=== PATIENT | male | born 1950 | race Caucasian/White ===

== ENCOUNTER 2016-07-03 08:56 | Inpatient (IN) | payer MEDICARE, OTHER ==
[~2016-07-03] VITALS: Ht 182.9 cm; Wt 104.3 kg
[2016-07-22] MEDS ORDERED: ceFAZolin 2 GM PREMIX 50 ML IV SCH (07:30)
[2016-07-22] MEDS ORDERED: METOPROLOL TARTRATE 25 MG TAB PO PRN (07:30)
[2016-07-22] MEDS ORDERED: VANCOMYCIN 1000 MG/NS 250 ML (for <70 kg) IV SCH ×2 (07:30)
[2016-07-22] MEDS ORDERED: TRANEXAMIC ACID IV SCH ×2 (07:30→13:00)
[2016-07-22] MEDS ORDERED: ROPIVACAINE PERI-ARTICULAR INJECTION. PERIART SCH ×5 (07:30)
[2016-07-22] MEDS ORDERED: INSULIN HUMAN REGULAR 1,000 UNITS/10 ML VIAL SQ PRN (07:30)
[2016-07-22] MEDS ORDERED: SODIUM CHLORIDE 0.9% IV SCH ×2 (07:30→13:00)
[2016-07-22] MEDS ORDERED: LACTATED RINGER'S 1000 ML IV SCH (07:30)
[2016-07-22] MEDS: POVIDONE IODINE 7.5% SCRUB 118 ML BOTTLE TOP SCH (07:30)
[2016-07-22] MEDS ORDERED: SODIUM CHLORID 0.9% 500 ML IV SCH (07:30)
[2016-07-22] MEDS ORDERED: DEXAMETHASONE SOD PHOS 20 MG/5 ML VIAL IV SCH (07:45)
[2016-07-22 07:49] VITALS: BP 154/95; PULSE 78; RESP 16; TEMP 97; O2SAT 99
--- NOTE | 2016-07-22 08:58 | HHI.DCPOC ---
Discharge Care Plan Diagnosis: (1) Primary localized osteoarthrosis, lower leg Your Health Problems Are: Difficulty with ADL Goals to Promote Your Health * To prevent worsening of your condition and complications * To maintain your health at the optimal level Directions to Meet Your Goals Take your medications as prescribed Follow your dietary instruction Follow activity as directed Keep your appointments as scheduled Take your immunizations and boosters as scheduled If your symptoms worsen call your PCP, if no PCP go to Urgent Care Center or Emergency Room Smoking is Dangerous to Your Health. Avoid second hand smoke Call the 24-hour hour crisis hotline for domestic abuse at Artem Manuel Jul 22, 2016 08:58
--- NOTE | 2016-07-22 08:59 | HHI.FF ---
Face to Face Verification Diagnosis: (1) Primary localized osteoarthrosis, lower leg Physical Therapy Gait training, Transfer training, bed to chair Knee: Total knee Right LE Weight Bearing: WB as tolerated Right LE Range of Motion: Active ROM Nursing Nursing: Raffy teaching, Dressing changes Dressing Changes: Daily dressing change I have seen patient Orlin Lester on 07/22/16. My clinical findings support the need for the requested home health care services because: Limited ability to care for self High risk of falls I certify that my clinical findings support that this patient is homebound because: Post-op weakness Unsteady gait/balance Artem Manuel Jul 22, 2016 08:59
[2016-07-22] MEDS ORDERED: CPMMACHINE (09:01)
[2016-07-22] MEDS ORDERED: COMMODE 3-IN-11 MIS (09:01)
[2016-07-22] MEDS ORDERED: WALKER WHEELS/F1 MIS (09:01)
[2016-07-22] MEDS ORDERED: GENTAMICIN SULFATE 80 MG/2 ML VIAL ONE (09:08)
[2016-07-22] MEDS ORDERED: MIDAZOLAM HCL 5 MG/5 ML VIAL ONE (09:23)
[2016-07-22] MEDS ORDERED: DEXAMETHASONE SOD PHOS 4 MG/ML VIAL ONE (09:23)
[2016-07-22] MEDS ORDERED: ACETAMINOPHEN 1000 MG/100 ML VIAL IV ONE (09:23)
[2016-07-22] MEDS ORDERED: fentaNYL CITRATE 250 MCG/5 ML AMP ONE (09:23)
[2016-07-22] MEDS ORDERED: FAMOTIDINE 20 MG/2 ML VIAL ONE (09:23)
--- NOTE | 2016-07-22 11:57 | PD.OP ---
cc: Hilton Torres MD Operative Report Date of Surgery: Jul 22, 2016 Preoperative Diagnosis: Right knee severe osteoarthritis Postoperative Diagnosis: Same Procedure: Right total knee arthroplasty Anesthesia: Gen. and adductor canal block Surgeon: Hilton Torres [employer]rections(s): KARINA Mcknight The surgical procedure was assisted by my Advanced Registered Nurse Practitioner. My FIRE PREVENTION SPECIALIST presence was necessary throughout this case for the manipulation and positioning of the surgical extremity. My FIRE PREVENTION SPECIALIST was assisting me throughout the duration of this procedure. The skill set of an Advance Registered Nurse Practitioner was medically necessary to complete this procedure. During the surgical case, the surgical corsetier was working at the back table and the Advance Registered Nurse Practitioner was directly assisting me. Operation and Findings: IMPLANTS: DePuy Attune: Patella: size 38. Femur, posterior stabilized size 8. Tibia, rotating platform size 7. Tibial insert, rotating platform, posterior stabilized size 5 mm thickness. ESTIMATED BLOOD LOSS: 200 cc TOURNIQUET TIME: 51 minutes at 250 mmHg pressure. JUSTIFICATION FOR PROCEDURE: The patient has end-stage osteoarthritis to the knee. There is an attached conservative measures pathway form in the chart that describes the nonoperative measures that were undertaken prior to consideration of surgical management. The patient understood the risks and benefits of surgical management. See my office notes for further details PROCEDURE: The patient was brought back to the operative theatre. Adequate anesthesia was obtained. The patient received intravenous vancomycin and Ancef. The lower extremity was prepped and draped in the usual sterile fashion.The leg was exsanguinated, the tourniquet was raised. A standard anterior incision was performed followed by medial parapatellar arthrotomy was performed. End-stage arthritis was identified. Osteotomy of the patella was performed. We drilled holes for the patella. We trialed the patella component. We placed an intramedullary guide into the distal femur. We ultimately resected 13 mm off of the distal femur in 5 degrees of valgus. The remnants of the ACL and PCL were resected. Osteotomy of the proximal tibia was performed, resecting 5 mm off of the medial side. This was done with 3 degrees of posterior slope using an extramedullary guide. The distal end of the guide was placed in the mid aspect of the ankle. The femur was sized, and four chamfer cuts were completed in 3 of external rotation. We then cut the central box in the distal femur to replace the PCL. We resected the remnants of the menisci and removed osteophytes off of the femur and tibia. We then trialed the knee. We punched the tibia for the keel, and then used standard technique to cement in components. Excess cement was removed. We trialed the knee again and the final polyethylene thickness was chosen to provide extension to 0 degrees, and flexion of 140 degrees to gravity. The ligaments were appropriately balanced. Lateral release was necessary to obtain excellent patellofemoral tracking. The tourniquet was released and adequate hemostasis was obtained. An intra- articular injection of a ropivacaine cocktail was injected. The posterior knee was inspected for excess cement, which was removed. The final polyethylene was put into position after thorough irrigation. We then closed deep fascia with a #2 Stratafix followed by skin with 2-0 Vicryl followed by migue. Postop plan is to weight-bear as tolerated. DVT prophylaxis will be performed with Esha, ONI montgomery, early mobilization, and Lovenox followed by aspirin. Hilton Torres MD Jul 22, 2016 11:57
[2016-07-22] MEDS ORDERED: NORC5TAB PO (11:59)
[2016-07-22] MEDS ORDERED: ASPI325T PO (11:59)
[2016-07-22] MEDS ORDERED: ENOX40P SQ (11:59)
[2016-07-22] MEDS ORDERED: ZOLPIDEM TARTRATE 5 MG TAB PO PRN (12:00)
[2016-07-22] MEDS ORDERED: ACETAMINOPHEN/HYDROcodone 325 MG/5 MG TAB PO PRN (12:00)
[2016-07-22] MEDS ORDERED: ONDANSETRON HCL 4 MG/2 ML VIAL IVP PRN (12:00)
[2016-07-22] MEDS ORDERED: diphenhydrAMINE HCL 50 MG/ML VIAL IV PRN (12:00)
[2016-07-22] MEDS ORDERED: MAGNESIUM HYDROXIDE SUSP 30 ML CUP PO PRN (12:00)
[2016-07-22] MEDS ORDERED: ALUMINUM/MAGNESIUM/SIMETH 30 ML CUP PO PRN (12:00)
[2016-07-22] MEDS ORDERED: NALOXONE HCL 0.4 MG/ML AMP IV PRN (12:00)
[2016-07-22] MEDS ORDERED: SODIUM CHLORIDE 0.9% FLUSH 5 ML FLUSH IVF PRN (12:00)
[2016-07-22] MEDS ORDERED: BISACODYL 10 MG SUPP PR PRN (12:00)
[2016-07-22] MEDS ORDERED: MORPHINE SULFATE 4 MG/ML INJ IV PUSH PRN (12:00)
[2016-07-22] MEDS ORDERED: Post-op Orders (for Pharmacy) MISC XX ONE (12:15)
[2016-07-22] MEDS ORDERED: DO NOT ADM ANY ANTICOAGULANT DRUGS XX PRN (12:15)
[2016-07-22] MEDS ORDERED: BUPIVACAINE HCL PF 0.5% 30 ML VIAL NB ONE (12:25)
[2016-07-22] MEDS ORDERED: *morphine SULFATE 8 MG/ML PERIprocedure ONLY ONE ×2 (12:35→13:09)
[2016-07-22] MEDS: SODIUM CHLOR 0.9% 1000 ML INJ 1,000 ML IV SCH ×2 (12:40→20:39)
[2016-07-22] MEDS ORDERED: NEOSTIGMINE 3 MG/3 ML SYR IV ONE (13:58)
[2016-07-22] MEDS ORDERED: ONDANSETRON HCL 4 MG/2 ML VIAL IV PUSH ONE (13:58)
[2016-07-22] MEDS ORDERED: LACTATED RINGER'S 1000 ML INJ 1,000 ML IV ONE (13:58)
[2016-07-22] MEDS ORDERED: ePHEDrine/NS 50 MG/5 ML SYR IV ONE (13:58)
[2016-07-22] MEDS ORDERED: PROPOFOL 200 MG/20 ML AMP IV ONE (13:58)
--- NOTE | 2016-07-22 14:36 | RADRPT ---
EXAM DATE/TIME: 07/22/2016 13:18 [facility] COMPARISON: CHEST PA & LAT, July 03, 2016, 11:17. INDICATIONS : Post-op total right knee arthroplasty. MEDICAL HISTORY : None. SURGICAL HISTORY : None. ENCOUNTER: Initial ACUITY: 1 day PAIN SCORE: 5/10 LOCATION: Right knee. FINDINGS: The patient is post right total knee arthroplasty with the hardware is in excellent position. Alignme nt is good. Skin migue are in place. CONCLUSION: 1. One punctate right knee aren't blunted. Artem Hayes MD on July 22, 2016 at 14:34 Board Certified Radiologist. This report was verified electronically.
[2016-07-22] MEDS: ACETAMINOPHEN/HYDROcodone 325 MG/5 MG TAB PO PRN (17:49)
[2016-07-22 17:51] VITALS: BP 143/74; PULSE 83; RESP 18; TEMP 96.5; O2SAT 93
[2016-07-22] MEDS ORDERED: ENALAPRILAT 1.25 MG/ML VIAL IV PUSH PRN (18:15)
[2016-07-22 20:20] VITALS: BP 107/61; PULSE 70; RESP 19; TEMP 97.1; O2SAT 92
[2016-07-22] MEDS: SODIUM CHLORIDE 0.9% FLUSH 5 ML FLUSH IVF SCH (20:28)
[2016-07-23 00:10] VITALS: BP 113/59; PULSE 68; RESP 18; TEMP 97.1; O2SAT 95
[2016-07-23] MEDS: ACETAMINOPHEN/HYDROcodone 325 MG/5 MG TAB PO PRN ×3 (02:16→16:05)
[2016-07-23] MEDS: POVIDONE IODINE 7.5% SCRUB 118 ML BOTTLE TOP SCH (03:45)
[2016-07-23 04:30] VITALS: BP 107/65; PULSE 77; RESP 18; TEMP 96.4; O2SAT 96
[2016-07-23 07:20] LABS: MEAN CELL VOLUME 85.5 FL (80.0-100.0); MEAN CORPUSCULAR HEMOGLOBIN 28.3 PG (27.0-34.0); MEAN CORPUSCULAR HGB CONC 33.1 % (32.0-36.0); PLATELET COUNT 199 TH/MM3 (150-450); RED BLOOD COUNT 4.68 MIL/MM3 (4.50-5.90); RED CELL DISTRIBUTION WIDTH 14.5 % (11.6-17.2); REVIEW FLAG FINAL; WHITE BLOOD COUNT 13.8 TH/MM3 (4.0-11.0)
[2016-07-23] MEDS ORDERED: DEXAMETHASONE SOD PHOS 20 MG/5 ML VIAL IV ONE (07:45)
[2016-07-23] MEDS: SODIUM CHLOR 0.9% 1000 ML INJ 1,000 ML IV SCH (07:53)
[2016-07-23 08:00] VITALS: BP 117/84; PULSE 66; RESP 20; TEMP 97; O2SAT 98
[2016-07-23 08:24] VITALS: O2SAT 100
[2016-07-23] MEDS: SODIUM CHLORIDE 0.9% FLUSH 5 ML FLUSH IVF SCH (08:36)
[2016-07-23] MEDS ORDERED: INFLUENZA VIRUS VACCINE (QUADRIVALENT) 0.5 ML SYR IM ONE (10:00)
--- NOTE | 2016-07-23 10:11 | PD.CONS ---
[facility] Consult Request[facility] By Dr. Torres Reason for Consult Patient education and opinion treatment of DVT prophylaxis. Primary Care Physician Yaron Portillo Jr, MD Diagnoses: History of Present Illness 66-year-old white male with no significant medical history other than osteoarthritis who has had long-term history of right knee pain who has failed conservative management electively underwent a right total knee arthroplasty with Dr. Torres today. He states that his father previously had a lower extremity clots post previous procedure was concern about this family history. He reports no history of previous clotting disorder nor any previous venous thrombosis events. He reports no history of constipation or any bloody stools. He is currently doing well postoperatively and states that his pain is controlled well. He is tolerating Lovenox and is requesting home health care for administration as he doesn't feel that he and his is comfortable in doing self injection post discharge. Review of Systems Constitutional: DENIES: Fatigue, Fever, Chills, Change in appetite Endocrine: DENIES: Heat/cold intolerance Eyes: DENIES: Blurred vision, Eye pain, Vision loss Ears, nose, mouth, throat: DENIES: Hearing loss, Nasal discharge, Throat pain, Ear Pain, Sinus Pain Respiratory: DENIES: Cough, Shortness of breath Cardiovascular: DENIES: Chest pain, Palpitations, Dyspnea on Exertion, Lower Extremity Edema Gastrointestinal: DENIES: Abdominal pain, Black stools, Bloody stools, Constipation, Diarrhea, Nausea, Vomiting Musculoskeletal: COMPLAINS OF: Joint pain (right knee pain), DENIES: Muscle aches, Stiffness Integumentary: DENIES: Rash Hematologic/lymphatic: DENIES: Bruising, Lymphadenopathy Immunologic/allergic: DENIES: Eczema Neurologic: DENIES: Headache, Localized weakness, Paresthesias Psychiatric: DENIES: Anxiety, Depression, Suicidal Ideation Past Family Social History Allergies: Coded Allergies: No Known Allergies (Verified , 07/22/16) Past Medical History Osteoarthritis Past Surgical History Right knee arthroscopic Tonsillectomy Right thumb surgery Reported Medications None Family History Father had a previous lower extremity clot Social History Occasional use of alcohol, no tobacco use. Physical Exam Vital Signs Vital Signs Date Time Temp Pulse Resp B/P Pulse Ox O2 Delivery O2 Flow Rate FiO2 07/23/16 08:24 100 21 07/23/16 08:00 97.0 66 20 117/84 98 07/23/16 04:30 96.4 77 18 107/65 96 07/23/16 00:10 97.1 68 18 113/59 95 07/22/16 20:20 97.1 70 19 107/61 92 07/22/16 18:14 Nasal Cannula 3.00 07/22/16 17:51 96.5 83 18 143/74 93 07/22/16 14:45 73 16 139/72 93 Nasal Cannula 3 07/22/16 13:45 77 15 144/78 93 Nasal Cannula 3 07/22/16 13:30 80 15 110/73 93 Nasal Cannula 3 07/22/16 13:15 73 14 146/79 93 Nasal Cannula 3 07/22/16 13:00 72 14 147/78 95 Nasal Cannula 3 07/22/16 12:45 74 15 151/87 94 Nasal Cannula 3 07/22/16 12:30 77 15 158/86 95 Nasal Cannula 3 07/22/16 12:18 98.1 82 15 154/98 92 Simple Mask 6 Physical Exam GENERAL: This is a well-nourished, well-developed patient, in no apparent distress. SKIN: No rashes, ecchymoses or lesions. Cool and dry. HEAD: Atraumatic. Normocephalic. No temporal or scalp tenderness. EYES: Pupils equal round and reactive. Extraocular motions intact. No scleral icterus. No injection or drainage. ENT: Nose without bleeding, purulent drainage or septal hematoma. NECK: Trachea midline. No JVD or lymphadenopathy. Supple, nontender, no meningeal signs. CARDIOVASCULAR: Regular rate and rhythm RESPIRATORY: Clear to auscultation. Breath sounds equal bilaterally. No wheezes , rales, or rhonchi. GASTROINTESTINAL: Abdomen soft, non-tender, nondistended. No hepato-splenomegaly , or palpable masses. No guarding. Normoactive bowel sounds MUSCULOSKELETAL: Extremities without clubbing, cyanosis, or edema. Right knee bandage clean dry intact NEUROLOGICAL: Awake and alert to person place time and situation. Cranial nerves II through XII intact. Motor and sensory grossly within normal limits. Normal speech. Laboratory Laboratory Tests Test 07/23/16 06:31 White Blood Count 13.8 Red Blood Count 4.68 Hemoglobin 13.3 Hematocrit 40.0 Mean Corpuscular Volume 85.5 Mean Corpuscular Hemoglobin 28.3 Mean Corpuscular Hemoglobin 33.1 Concent Red Cell Distribution Width 14.5 Platelet Count 199 Mean Platelet Volume 8.8 Result Diagram: 07/23/16 0631 Imaging Last Impressions Knee X-Ray 07/22/16 1153 Signed Impressions: Service Date/Time: Wednesday, July 22, 2016 13:18 - CONCLUSION: 1. One punctate right knee aren't blunted. Artem Hayes MD Assessment and Plan Problem List: (1) Total knee replacement status ICD Code: Z96.659 Status: Acute Assessment and Plan 1. Status post operative day #1 Right total knee arthroplastypending postoperative care, pain control, physical therapy per orthopedic surgery Dr. Torres. 2. DVT prophylaxis risks and benefits of anticoagulation discussed with patient today. Initiate Lovenox for orthopedics. Will need home health care follow-up for Lovenox administration post discharge. Further education concerning VTE prevention discussed with the patient. Thank you for the consultation. Problem Qualifiers (1) Total knee replacement status: Qualified Code: Z96.651 - Status post total right knee replacement Gin Davila MD Jul 23, 2016 10:11
[2016-07-23] MEDS ORDERED: ENOXAPARIN SODIUM 40 MG/0.4 ML SYRINGE SQ SCH (11:00)
--- NOTE | 2016-07-23 11:10 | PD.ORT.PN ---
Subjective Post Op Day #: 1 Subjective Remarks doing well no complaints Objective Vitals Vital Signs Date Time Temp Pulse Resp B/P Pulse Ox O2 Delivery O2 Flow Rate FiO2 07/23/16 08:24 100 21 07/23/16 08:00 97.0 66 20 117/84 98 07/23/16 04:30 96.4 77 18 107/65 96 07/23/16 00:10 97.1 68 18 113/59 95 07/22/16 20:20 97.1 70 19 107/61 92 07/22/16 18:14 Nasal Cannula 3.00 07/22/16 17:51 96.5 83 18 143/74 93 07/22/16 14:45 73 16 139/72 93 Nasal Cannula 3 07/22/16 13:45 77 15 144/78 93 Nasal Cannula 3 07/22/16 13:30 80 15 110/73 93 Nasal Cannula 3 07/22/16 13:15 73 14 146/79 93 Nasal Cannula 3 07/22/16 13:00 72 14 147/78 95 Nasal Cannula 3 07/22/16 12:45 74 15 151/87 94 Nasal Cannula 3 07/22/16 12:30 77 15 158/86 95 Nasal Cannula 3 07/22/16 12:18 98.1 82 15 154/98 92 Simple Mask 6 I/O 07/22/16 07/22/16 07/22/16 07/23/16 07/23/16 07/23/16 06:59 14:59 22:59 06:59 14:59 22:59 Intake Total 1300 ml 1951 ml 1187 ml Output Total 350 ml 900 ml 700 ml Balance 950 ml 1051 ml 487 ml Intake Oral 820 ml 600 ml IV Total 1131 ml 587 ml Other 1300 ml Output Urine Total 300 ml 900 ml 700 ml Estimated Blood Loss 50 ml # Bowel Movements 0 0 Result Diagram: 07/23/16 0631 Imaging Last 24 hours Impressions Knee X-Ray 07/22/16 1153 Signed Impressions: Service Date/Time: Friday, July 22, 2016 13:18 TKA looks good Objective Remarks incision c/d/i. no erythema, calf soft, 2+dp, mild knee swelling Assessment & Plan Ortho Post Op Day #: 1 Problem List: Assessment and Plan POD #1 s/p R TKA LOvenox WBAT D/C home today Hilton Torres MD Jul 23, 2016 11:09
[2016-07-23] MEDS ORDERED: MULTIVITAMINS/MINERALS THERAPEUTIC TAB PO SCH (21:00)
[2016-07-23] MEDS ORDERED: DOCUSATE SODIUM 100 MG CAP PO SCH (21:00)
--- NOTE | 2016-07-26 18:41 | HHI.DS ---
Discharge Summary Admission Date Jul 22, 2016 at 06:59 Discharge Date: Jul 23, 2016 Admitting Diagnosis Primary localized OA, lower leg Diagnosis: (1) Primary localized osteoarthrosis, lower leg Diagnosis: Principal Procedures Right TKA Brief History This is a 66 year old male patient with severe OA of the right knee CBC/BMP: 07/23/16 0631 PE at Discharge incision c/d/i. no erythema, calf soft, 2+dp, mild knee swelling Hospital Course The patient was admitted to the hospital for severe OA of the right knee to have a right TKA. The patient's surgery went well with no complications. The patient had a normal hospital course. The patient is WBAT. The patient was discharged to home with home health. The patient will f/u with Dr Torres in 1- 2 weeks. Pt Condition on Discharge: Stable Discharge Disposition: Disch w/ Home Health Serv Discharge Instructions Diet Instructions: As Tolerated, No Restrictions Activities You Can Perform: Weight Bearing as Lor Activities to Avoid: Strenuous Activity Follow up Referrals: Orthopedics with Hilton Torres MD New Medications: Aspirin (Aspirin) 325 Mg Tab 325 MG PO DAILY Start Aspirin after Lovenox is completed. Prevent Blood Clot # 30 Ref 0 TAB Commode 3-in-1 (Commode 3-in-1) 1 Mis Mis 1 EA .ROUTE DIRECTED #1 Ref 0 EA CPM-Continuous Passive Motion Machine (CPM-Continuous Passive Motion Machine) 1 Ea Device 1 EA .ROUTE DIRECTED #1 Ref 0 EA Enoxaparin Inj (Lovenox Inj) 40 Mg/0.4 Ml Syr 40 MG SQ DAILY Start Aspirin after Lovenox is completed. Blood Clot Prevention # 10 Ref 0 SYRINGE Hydrocodone-Acetaminophen ([place]) 5-325 mg Tab 1-2 TAB PO Q4H PRN PAIN #60 Ref 0 TAB Walker with Front Wheels (Walker with Front Wheels) 1 Mis Mis 1 EA .ROUTE DIRECTED #1 Ref 0 EA Artem Manuel Jul 26, 2016 18:41
== END 2016-07-23 16:37 | disposition home health service (06) | DRG 470 ==
LOC: EDBD → HSDI 07-22 06:59 → N06A 07-22 16:45
PROVIDERS: ADMIT Orthopaedic Surgery; ATTEND Orthopaedic Surgery
PROC: 3E0T3CZ (ICD-10-PCS; 2016-07-22)
PROC: 0SRC0J9 Replacement of Right Knee Joint with Synthetic Substitute, Cemented, Open Approach (ICD-10-PCS; principal; 2016-07-22 09:46)
DX: M17.11 Unilateral primary osteoarthritis, right knee (principal)
CPT/HCPCS: 73560; 85027; 86850; 86900; 86901; 94150; C1776; J0131; J0171; J0690; J0735; J1100; J1580; J1650; J1885; J2250; J2270; J2405; J2710; J2795; J3010; J3370; J7030; J7050; J7120; L1830

== ENCOUNTER 2017-03-09 16:29 | Observation (INO) | payer MEDICARE, OTHER ==
[~2017-03-09] VITALS: Ht 185.4 cm; Wt 103.1 kg
[~2017-03-09 16:29] MED LIST: ASPI325T PO; COMMODE 3-IN-11 MIS; CPMMACHINE; ENOX40P SQ; NORC5TAB PO; WALKER WHEELS/F1 MIS
[2017-03-09 16:35] VITALS: BP 149/85; PULSE 78; RESP 16; TEMP 98; O2SAT 95
[2017-03-09] MEDS ORDERED: SODIUM CHLOR 0.9% 1000 ML INJ 1,000 ML IV ONE (16:57)
[2017-03-09] MEDS ORDERED: SODIUM CHLORIDE 0.9% FLUSH 10 ML FLUSH IVF PRN (17:00)
[2017-03-09] MEDS ORDERED: ACETAMINOPHEN 325 MG TAB PO ONE (17:00)
--- NOTE | 2017-03-09 17:06 | PD ---
HPI Chief Complaint: Syncope/Near-Syncope Time Seen by Provider: 16:46 Travel History International Travel<30 days: No Contact w/Intl Traveler<30days: No Traveled to known affect area: No History of Present Illness HPI Patient is a 66-year-old male comes in after syncopal episode. Per , he was standing in the kitchen with her when he said that he was feeling unwell and wanted to go lay down. She says that she followed him into the bedroom where she witnessed him to pass out. He has had on the dresser in the bedroom. She says she helped him into bed, where he then had an episode where he became stiff and his eyes rolled back. She was concerned he had a seizure. There was no incontinence, he did not bite his tongue, he was not confused after he awoke. He denies having any chest pain or shortness of breath. He was working outside today prior to the event. He says he is feeling in his usual state of health prior to this afternoon. [facility] Past Medical History Medical History: Denies Significant Hx Cancer: No Cardiovascular Problems: No Diabetes: No Endocrine: No Genitourinary: No Hepatitis: No Hiatal Hernia: No Immune Disorder: No Musculoskeletal: Yes (ARTHRITIS RIGHT KNEE) Neurologic: No Psychiatric: No Respiratory: No Thyroid Disease: No Tetanus Vaccination: Unknown Influenza Vaccination: Yes Past Surgical History Abdominal Surgery: No AICD: No Body Medical Devices: RIGHT THUMB METAL Cardiac Surgery: No Ear Surgery: No Endocrine Surgery: No Eye Surgery: No Genitourinary Surgery: No Joint Replacement: No Oral Surgery: Yes (TONSILLECTOMY) Pacemaker: No Thoracic Surgery: No Social History Alcohol Use: Yes (Occ.) Tobacco Use: No Substance Use: No Allergies-Medications (Allergen,Severity, Reaction): Coded Allergies: No Known Allergies (Verified , 03/09/17) Reported Meds & Prescriptions Reported Meds & Active Scripts Active No Active Prescriptions or Reported Medications Review of Systems Except as stated in HPI: all other systems reviewed are Neg General / Constitutional: No: Fever, Chills Eyes: No: Blurred Vision HENT: Positive: Headaches Cardiovascular: No: Chest Pain or Discomfort, Palpitations Respiratory: No: Shortness of Breath Gastrointestinal: No: Nausea, Vomiting Musculoskeletal: No: Edema, Pain Skin: Positive Other (laceration) Neurologic: Positive: Syncope, No: Weakness, Dizziness Physical Exam Narrative GENERAL: Awake and alert, no acute distress. SKIN: Focused skin assessment warm/dry. 2 cm laceration to the right side of the forehead. HEAD: Atraumatic. Normocephalic. EYES: Pupils equal and round. No scleral icterus. Extraocular movements intact. ENT: Mucous membranes pink and moist. NECK: Trachea midline. No JVD. CARDIOVASCULAR: Regular rate and rhythm. No murmur appreciated. RESPIRATORY: No accessory muscle use. Clear to auscultation. Breath sounds equal bilaterally. GASTROINTESTINAL: Abdomen soft, non-tender, nondistended. MUSCULOSKELETAL: No obvious deformities. No clubbing. No cyanosis. No edema. NEUROLOGICAL: Awake and alert. No obvious cranial nerve deficits. Motor grossly within normal limits. Normal speech. PSYCHIATRIC: Appropriate mood and affect; insight and judgment normal. Data Data Last Documented VS Vital Signs Date Time Temp Pulse Resp B/P (MAP) Pulse Ox O2 Delivery O2 Flow Rate FiO2 03/09/17 19:20 78 16 133/76 (95) 99 Room Air 03/09/17 16:35 98.0 Orders Orders Complete Blood Count With Diff (03/09/17 16:57) Comprehensive Metabolic Panel (03/09/17 16:57) Ckmb (Isoenzyme) Profile (03/09/17 16:57) Troponin I (03/09/17 16:57) Act Partial Throm Time (Ptt) (03/09/17 16:57) Prothrombin Time / Inr (Pt) (03/09/17 16:57) Chest, Single Ap (03/09/17 16:57) Ct Brain W/O Iv Contrast(Rout) (03/09/17 16:57) Ct Cerv Spine W/O Contrast (03/09/17 16:57) Ecg Monitoring (03/09/17 16:57) Iv Access Insert/Monitor (03/09/17 16:57) Oximetry (03/09/17 16:57) Sodium Chloride 0.9% Flush (Ns Flush) (03/09/17 17:00) Sodium Chlor 0.9% 1000 Ml Inj (Ns 1000 M (03/09/17 16:57) Acetaminophen (Tylenol) (03/09/17 17:00) Lidocaine 1% Inj (50 Ml) (Xylocaine 1% I (03/09/17 17:15) Electrocardiogram (03/09/17 16:45) Admit Order (Ed Use Only) (03/09/17 ) Labs Laboratory Tests Test 03/09/17 17:00 White Blood Count 11.6 TH/MM3 Red Blood Count 5.66 MIL/MM3 Hemoglobin 15.7 GM/DL Hematocrit 46.9 % Mean Corpuscular Volume 82.9 FL Mean Corpuscular Hemoglobin 27.7 PG Mean Corpuscular Hemoglobin Concent 33.4 % Red Cell Distribution Width 14.0 % Platelet Count 226 TH/MM3 Mean Platelet Volume 8.4 FL Neutrophils (%) (Auto) 74.1 % Lymphocytes (%) (Auto) 16.0 % Monocytes (%) (Auto) 8.3 % Eosinophils (%) (Auto) 0.7 % Basophils (%) (Auto) 0.9 % Neutrophils # (Auto) 8.5 TH/MM3 Lymphocytes # (Auto) 1.9 TH/MM3 Monocytes # (Auto) 1.0 TH/MM3 Eosinophils # (Auto) 0.1 TH/MM3 Basophils # (Auto) 0.1 TH/MM3 CBC Comment DIFF FINAL Differential Comment Prothrombin Time 10.6 SEC Prothromb Time International Ratio 1.0 RATIO Activated Partial Thromboplast Time 25.8 SEC Blood Urea Nitrogen 16 MG/DL Creatinine 1.50 MG/DL Random Glucose 116 MG/DL Total Protein 7.2 GM/DL Albumin 3.7 GM/DL Calcium Level 8.7 MG/DL Alkaline Phosphatase 88 U/L Aspartate Amino Transf (AST/SGOT) 12 U/L Alanine Aminotransferase (ALT/SGPT) 28 U/L Total Bilirubin 1.0 MG/DL Sodium Level 136 MEQ/L Potassium Level 4.0 MEQ/L Chloride Level 103 MEQ/L Carbon Dioxide Level 27.7 MEQ/L Anion Gap 5 MEQ/L Estimat Glomerular Filtration Rate 47 ML/MIN Total Creatine Kinase 86 U/L Troponin I LESS THAN 0.02 NG/ML MDM Medical Decision Making Medical Screen Exam Complete: Yes Emergency Medical Condition: Yes Interpretation(s) ECG shows normal sinus rhythm at 81, no ST elevation or depression, normal intervals Differential Diagnosis Syncope versus ACS versus dehydration versus electrolyte abnormality versus seizure Narrative Course Patient is a 66-year-old male who comes in after 2 syncopal episodes today. Exam shows a laceration to the forehead. There is no other abnormalities. IV established, labs sent. Patient connected to the athletic monitor. Labs show a creatinine of 1.5, this is only slightly elevated from his previous. CT head and C-spine show no acute abnormalities. Laceration to the head was repaired by the [facility]. Has had a tetanus vaccine within the last 5 years. Patient given IV fluids. He will be placed in observation for further management. Diagnosis Primary Impression: Syncope Qualified Codes: R55 - Syncope and collapse Additional Impression: Laceration of face Qualified Codes: S01.81XA - Laceration without foreign body of other part of head, initial encounter Admitting Information Admitting Physician Requests: Observation Scripts No Active Prescriptions or Reported Meds Condition: Stable Tati Henry MD Mar 09, 2017 17:06
[2017-03-09 17:10] VITALS: O2SAT 95
--- NOTE | 2017-03-09 17:13 | RADRPT ---
EXAM DATE/TIME: 03/09/2017 17:04 [facility] COMPARISON: CHEST PA & LAT, July 03, 2016, 11:17. INDICATIONS : Syncopal episode. MEDICAL HISTORY : None. SURGICAL HISTORY : None. ENCOUNTER: Initial ACUITY: 1 day PAIN SCORE: 0/10 LOCATION: Bilateral chest FINDINGS: A single view of the chest demonstrates the lungs to be symmetrically aerated without evidence of mas s, infiltrate or effusion. The cardiomediastinal contours are unremarkable. Osseous structures are intact. CONCLUSION: Normal examination. Kurtis Mccullough MD on March 09, 2017 at 17:12 Board Certified Radiologist. This report was verified electronically.
[2017-03-09] MEDS ORDERED: LIDOCAINE HCL 1% 50 ML VIAL INFIL ONE (17:15)
[2017-03-09 17:17] LABS: CHLORIDE 103 MEQ/L (98-107); SODIUM (NA) 136 MEQ/L (136-145)
[2017-03-09 17:18] LABS: AUTOMATED NEUTROPHIL # 8.5 TH/MM3 (1.8-7.7); BASOPHIL # 0.1 TH/MM3 (0-0.2); BASOPHIL % 0.9 % (0.0-2.0); EOSINOPHIL # 0.1 TH/MM3 (0-0.4); EOSINOPHIL % 0.7 % (0.0-4.0); HEMATOCRIT 46.9 % (39.0-51.0); HEMO FLAGS DIFF FINAL; LYMPHOCYTE # 1.9 TH/MM3 (1.0-4.8); MEAN CELL VOLUME 82.9 FL (80.0-100.0); MEAN CORPUSCULAR HEMOGLOBIN 27.7 PG (27.0-34.0); MEAN CORPUSCULAR HGB CONC 33.4 % (32.0-36.0); MONO % 8.3 % (0.0-8.0); NEUT % 74.1 % (16.0-70.0); PLATELET COUNT 226 TH/MM3 (150-450); RED BLOOD COUNT 5.66 MIL/MM3 (4.50-5.90); WHITE BLOOD COUNT 11.6 TH/MM3 (4.0-11.0)
[2017-03-09 17:21] LABS: ANION GAP 5 MEQ/L (5-15); APTT (PATIENT) 25.8 SEC (24.3-30.1); BICARBONATE 27.7 MEQ/L (21.0-32.0); BLOOD UREA NITROGEN 16 MG/DL (7-18); PROTHROMBIN TIME - PATIENT 10.6 SEC (9.8-11.6)
[2017-03-09 17:24] LABS: ALT (GPT) 28 U/L (12-78); AST (GOT) 12 U/L (15-37); GLOMERULAR FILTRATION RATE 47 ML/MIN (>89)
[2017-03-09 17:27] LABS: ALKALINE PHOSPHATASE 88 U/L (45-117)
[2017-03-09 17:28] LABS: CREATINE KINASE 86 U/L (39-308)
--- NOTE | 2017-03-09 18:04 | PD ---
Physical Exam Time Seen by Provider: 17:45 Narrative I was asked by Dr. Henry and repair laceration on this patient. Please see her note for further details. Data Data Last Documented VS Vital Signs Date Time Temp Pulse Resp B/P (MAP) Pulse Ox O2 Delivery O2 Flow Rate FiO2 03/09/17 17:10 95 Room Air 03/09/17 16:35 98.0 78 16 149/85 (106) Orders Orders Complete Blood Count With Diff (03/09/17 16:57) Comprehensive Metabolic Panel (03/09/17 16:57) Ckmb (Isoenzyme) Profile (03/09/17 16:57) Troponin I (03/09/17 16:57) Act Partial Throm Time (Ptt) (03/09/17 16:57) Prothrombin Time / Inr (Pt) (03/09/17 16:57) Chest, Single Ap (03/09/17 16:57) Ct Brain W/O Iv Contrast(Rout) (03/09/17 16:57) Ct Cerv Spine W/O Contrast (03/09/17 16:57) Ecg Monitoring (03/09/17 16:57) Iv Access Insert/Monitor (03/09/17 16:57) Oximetry (03/09/17 16:57) Sodium Chloride 0.9% Flush (Ns Flush) (03/09/17 17:00) Sodium Chlor 0.9% 1000 Ml Inj (Ns 1000 M (03/09/17 16:57) Acetaminophen (Tylenol) (03/09/17 17:00) Lidocaine 1% Inj (50 Ml) (Xylocaine 1% I (03/09/17 17:15) Labs Laboratory Tests Test 03/09/17 17:00 White Blood Count 11.6 TH/MM3 Red Blood Count 5.66 MIL/MM3 Hemoglobin 15.7 GM/DL Hematocrit 46.9 % Mean Corpuscular Volume 82.9 FL Mean Corpuscular Hemoglobin 27.7 PG Mean Corpuscular Hemoglobin Concent 33.4 % Red Cell Distribution Width 14.0 % Platelet Count 226 TH/MM3 Mean Platelet Volume 8.4 FL Neutrophils (%) (Auto) 74.1 % Lymphocytes (%) (Auto) 16.0 % Monocytes (%) (Auto) 8.3 % Eosinophils (%) (Auto) 0.7 % Basophils (%) (Auto) 0.9 % Neutrophils # (Auto) 8.5 TH/MM3 Lymphocytes # (Auto) 1.9 TH/MM3 Monocytes # (Auto) 1.0 TH/MM3 Eosinophils # (Auto) 0.1 TH/MM3 Basophils # (Auto) 0.1 TH/MM3 CBC Comment DIFF FINAL Differential Comment Prothrombin Time 10.6 SEC Prothromb Time International Ratio 1.0 RATIO Activated Partial Thromboplast Time 25.8 SEC Blood Urea Nitrogen 16 MG/DL Creatinine 1.50 MG/DL Random Glucose 116 MG/DL Total Protein 7.2 GM/DL Albumin 3.7 GM/DL Calcium Level 8.7 MG/DL Alkaline Phosphatase 88 U/L Aspartate Amino Transf (AST/SGOT) 12 U/L Alanine Aminotransferase (ALT/SGPT) 28 U/L Total Bilirubin 1.0 MG/DL Sodium Level 136 MEQ/L Potassium Level 4.0 MEQ/L Chloride Level 103 MEQ/L Carbon Dioxide Level 27.7 MEQ/L Anion Gap 5 MEQ/L Estimat Glomerular Filtration Rate 47 ML/MIN Total Creatine Kinase 86 U/L Troponin I LESS THAN 0.02 NG/ML MDM Medical Record Reviewed: Yes Supervised Visit with FREDDY: Yes Procedures Procedure Narrative LACERATION LOCATION: Right forehead LENGTH: 1.5 cm NUMBER OF STITCHES/ALFRED: 4 interrupted REPAIR: The area of the laceration was prepped with Betadine and sterilely draped. The laceration was infiltrated with 1% lidocaine. The wound was copiously irrigated and explored without evidence of foreign body, tendon injury or neurovascular injury. The wound was closed using 6-0 Prolene. This was a single layer repair. A sterile dressing was applied. The patient was advised to keep the dressing clean and dry. Patient tolerated the procedure well. Scripts No Active Prescriptions or Reported Meds Valeria Alexander Mar 09, 2017 18:04
[2017-03-09 18:40] VITALS: BP 131/77; PULSE 78; RESP 16; O2SAT 98
--- NOTE | 2017-03-09 19:12 | RADRPT ---
EXAM DATE/TIME: 03/09/2017 18:21 [facility] COMPARISON: No previous studies available for comparison. INDICATIONS : Syncope. Fell and hit head. Right frontal laceration. RADIATION DOSE: 60.36 CTDIvol (mGy) MEDICAL HISTORY : None SURGICAL HISTORY : Tonsillectomy. ENCOUNTER: Initial ACUITY: 1 day PAIN SCALE: 0/10 LOCATION: Right frontal TECHNIQUE: Multiple contiguous axial images were obtained of the head. Using automated exposure control and adj ustment of the mA and/or kV according to patient size, radiation dose was kept as low as reasonably a chievable to obtain optimal diagnostic quality images. DICOM format image data is available electro nically for review and comparison. FINDINGS: CEREBRUM: The ventricles are normal. No evidence of midline shift, mass lesion, hemorrhage or acute infarction . No extra-axial fluid collections are seen. POSTERIOR FOSSA: The cerebellum and brainstem demonstrate no acute finding. The 4th ventricle is midline. The cerebe llopontine angle is unremarkable. EXTRACRANIAL: Visualized sinuses are clear. SKULL: The calvaria is intact. No evidence of skull fracture. CONCLUSION: No acute intracranial abnormality is identified. Braeden Lopez MD on March 09, 2017 at 19:09 Board Certified Radiologist. This report was verified electronically.
--- NOTE | 2017-03-09 19:16 | RADRPT ---
EXAM DATE/TIME: 03/09/2017 18:21 [facility] COMPARISON: No previous studies available for comparison. INDICATIONS : Syncope. Fell and hit head. RADIATION DOSE: 26.63 CTDIvol (mGy) MEDICAL HISTORY : None SURGICAL HISTORY : Tonsillectomy. ENCOUNTER: Initial ACUITY: 1 day PAIN SCALE: 0/10 LOCATION: neck TECHNIQUE: Volumetric scanning of the cervical spine was performed. Multiplanar reconstructions in the sagittal, coronal and oblique axial planes were performed. Using automated exposure control and adjustment o f the mA and/or kV according to patient size, radiation dose was kept as low as reasonably achievable to obtain optimal diagnostic quality images. DICOM format image data is available electronically f or review and comparison. FINDINGS: There is normal sagittal spine alignment of the cervical spine. No anterolisthesis or retrolisthesis is present. The atlantoaxial relationship is within normal limits. There is no prevertebral soft tiss ue swelling present. No fracture or dislocation is identified. There is degenerative disc disease at C6-C7 with facet arthrosis at multiple levels on the right. The visualized portions of the posterior fossa, paraspinous soft tissues, and upper lung zones demons trate no acute abnormality. CONCLUSION: No acute cervical spine abnormality is identified. Braeden Lopez MD on March 09, 2017 at 19:11 Board Certified Radiologist. This report was verified electronically.
[2017-03-09 19:20] VITALS: BP 133/76; PULSE 78; RESP 16; O2SAT 99
[2017-03-09] MEDS ORDERED: SODIUM CHLORIDE 0.9% FLUSH 10 ML FLUSH IV FLUSH PRN (20:00)
[2017-03-09] MEDS ORDERED: NALOXONE HCL 0.4 MG/ML AMP IV PRN (20:00)
[2017-03-09] MEDS: SODIUM CHLORIDE 0.9% FLUSH 10 ML FLUSH IV FLUSH SCH (21:00)
[2017-03-09 22:00] VITALS: BP 153/78; PULSE 82; RESP 20; TEMP 98; O2SAT 96
[2017-03-09 22:20] VITALS: PULSE 87
[2017-03-09 23:40] LABS: CREATINE KINASE 79 U/L (39-308)
[2017-03-10] VITALS: BP 153/78; PULSE 82; RESP 20; TEMP 96; O2SAT 96
[2017-03-10 04:00] VITALS: BP 117/71; PULSE 76; RESP 16; TEMP 96.2; O2SAT 96
[2017-03-10 06:53] LABS: AUTOMATED NEUTROPHIL # 4.9 TH/MM3 (1.8-7.7); BASOPHIL # 0.1 TH/MM3 (0-0.2); BASOPHIL % 0.8 % (0.0-2.0); EOSINOPHIL # 0.1 TH/MM3 (0-0.4); EOSINOPHIL % 0.7 % (0.0-4.0); HEMATOCRIT 45.8 % (39.0-51.0); HEMO FLAGS DIFF FINAL; LYMPH % 18.6 % (9.0-44.0); LYMPHOCYTE # 1.3 TH/MM3 (1.0-4.8); MEAN CELL VOLUME 84.1 FL (80.0-100.0); MEAN CORPUSCULAR HEMOGLOBIN 27.9 PG (27.0-34.0); MEAN CORPUSCULAR HGB CONC 33.1 % (32.0-36.0); MONO % 10.9 % (0.0-8.0); PLATELET COUNT 198 TH/MM3 (150-450); RED BLOOD COUNT 5.44 MIL/MM3 (4.50-5.90); RED CELL DISTRIBUTION WIDTH 13.9 % (11.6-17.2); WHITE BLOOD COUNT 7.2 TH/MM3 (4.0-11.0)
[2017-03-10 07:16] LABS: CREATINE KINASE 64 U/L (39-308)
[2017-03-10 07:47] LABS: POTASSIUM 4.2 MEQ/L (3.5-5.1)
[2017-03-10 07:50] LABS: BICARBONATE 26.9 MEQ/L (21.0-32.0)
[2017-03-10 08:00] VITALS: BP 112/75; PULSE 65; PULSE 76; RESP 18; TEMP 96.2; O2SAT 98
[2017-03-10] MEDS: SODIUM CHLORIDE 0.9% FLUSH 10 ML FLUSH IV FLUSH SCH (09:00)
--- NOTE | 2017-03-10 09:45 | RADRPT ---
EXAM DATE/TIME: 03/10/2017 07:53 [facility] COMPARISON: No previous studies available for comparison. INDICATIONS : Syncope. MEDICAL HISTORY : SURGICAL HISTORY : Tonsillectomy. Total knee replacement, right. Thumb surgery. ENCOUNTER: Initial ACUITY: 1 day PAIN SCORE: 0/10 LOCATION: Bilateral neck PEAK SYSTOLIC VELOCITIES (cm/sec): ICA/CCA RATIO: Right: 0.9 Left: 0.7 ICA: Right: 71 Left: 73 CCA: Right: 77 Left: 100 ECA: Right: 84 Left: 92 VERTEBRAL: Right: 47 antegrade Left: 38 antegrade Elevated flow velocities and ICA/CCA ratios have been found to correlate with increased degrees of vessel stenosis, calculated as percentage of diameter relative to a normal segment of distal ICA/CCA FINDINGS: RIGHT CAROTID: No significant stenosis is visualized. The waveforms are within normal limits. LEFT CAROTID: No significant stenosis is visualized. The waveforms are within normal limits. VERTEBRAL ARTERIES: Antegrade flow is seen in both vertebral arteries. MISCELLANEOUS: None. CONCLUSION: 1. Minimal carotid plaque without significant flow-limiting stenosis. 2. Antegrade vertebral artery flow bilaterally. Rohith Arnett MD on March 10, 2017 at 9:42 Board Certified Radiologist. This report was verified electronically.
--- NOTE | 2017-03-10 10:30 | ECHRPT ---
Indication: Syncope and collapse CONCLUSIONS Normal left ventricular size and wall thickness. The left ventricular systolic function is normal wi th an estimated ejection fraction in the range of 50-55%. Left ventricular diastolic function parameters a re normal. Regional wall motion abnormalities cannot be excluded. Possibly mild right ventricular enlargement with normal systolic function. There is mild tricuspid valve regurgitation. The estimated pulmonary arterial pressure is 37 mmHg. BP: 117 / 71 HR: 76 Rhythm: MEASUREMENTS (Male / Female) Normal Values Technical Quality: 2D ECHO LV Diastolic Diameter PLAX 3.9 cm 4.2 - 5.9 / 3.9 - 5.3 cm LV Systolic Diameter PLAX 3.2 cm IVS Diastolic Thickness 1.6 cm 0.6 - 1.0 / 0.6 - 0.9 cm LVPW Diastolic Thickness 1.5 cm 0.6 - 1.0 / 0.6 - 0.9 cm LV Relative Wall Thickness 0.8 RV Internal Dim ED PLAX 3.5 cm LVOT Diameter 2.1 cm M-MODE Aortic Root Diameter MM 4.1 cm LA Systolic Diameter MM 3.1 cm LA Ao Ratio MM 0.8 DOPPLER AV Peak Velocity 110.0 cm/s AV Peak Gradient 4.8 mmHg LVOT Peak Velocity 68.1 cm/s LVOT Peak Gradient 1.9 mmHg AV Area Cont Eq pk 2.1 cm MR Peak Velocity 238.0 cm/s MR Peak Gradient 22.7 mmHg Mitral E Point Velocity 39.5 cm/s Mitral A Point Velocity 58.2 cm/s Mitral E to A Ratio 0.7 LV E' Lateral Velocity 8.5 cm/s Mitral E to LV E' Lateral Ratio 4.7 LV E' Septal Velocity 7.1 cm/s Mitral E to LV E' Septal Ratio 5.5 TR Peak Velocity 262.0 cm/s TR Peak Gradient 27.0 mmHg FINDINGS LEFT VENTRICLE Normal left ventricular size and wall thickness. The left ventricular systolic function is normal wi th an estimated ejection fraction in the range of 50-55%. Left ventricular diastolic function parameters a re normal. Regional wall motion abnormalities cannot be excluded. RIGHT VENTRICLE Possibly mild right ventricular enlargement with normal systolic function. LEFT ATRIUM The left atrial size is normal. RIGHT ATRIUM The right atrial size is normal. ATRIAL SEPTUM Normal atrial septal thickness without atrial level shunting by limited color doppler interrogation. AORTA The aortic root and proximal ascending aorta are normal in size on limited imaging. MITRAL VALVE Structurally normal mitral valve. No mitral valve stenosis or regurgitation. AORTIC VALVE Trileaflet aortic valve. No aortic valve stenosis or regurgitation. TRICUSPID VALVE There is mild tricuspid valve regurgitation. The estimated pulmonary arterial pressure is 37 mmHg. PULMONARY VALVE The pulmonary valve is not well visualized. VESSELS The inferior vena cava is normal in size. PERICARDIUM No pericardial effusion. Martinez Mesa MD (Electronically Signed) Final Date:10 March 2017 10:29
--- NOTE | 2017-03-10 14:21 | HHI.DCPOC ---
Discharge Care Plan Diagnosis: (1) Syncope Goals to Promote Your Health * To prevent worsening of your condition and complications * To maintain your health at the optimal level Directions to Meet Your Goals Take your medications as prescribed Follow your dietary instruction Follow activity as directed Keep your appointments as scheduled Take your immunizations and boosters as scheduled If your symptoms worsen call your PCP, if no PCP go to Urgent Care Center or Emergency Room Smoking is Dangerous to Your Health. Avoid second hand smoke Call the 24-hour hour crisis hotline for domestic abuse at Diana Islas MD Mar 10, 2017 14:21
--- NOTE | 2017-03-10 14:35 | HHI.HP ---
[facility] Yaron Portillo Jr, MD Admission Diagnosis Syncope Diagnoses: Chief Complaint: Past out Travel History International Travel<30 Days: No Contact w/Intl Traveler <30 Da: No Traveled to Known Affected Are: No History of Present Illness Patient is a pleasant 66-year-old gentleman with minimal past medical history who ate poorly yesterday and did his yard work from 7 AM to 3 PM and then went to the grocery store with his has to celebrate their anniversary. He then passed out. He felt dizzy and lightheaded and went to sit down but missed the bed and hit his left forehead sustaining a small laceration which has been sutured in the emergency room. The patient's says that once he came to he got back in the bed he almost passed out again while lying supine. She brought him to the emergency room. Here he has had echocardiogram as well as multiple imaging studies which are unremarkable. He does appear dehydrated with acute kidney injury and evidence of volume contraction. Review of Systems Constitutional: COMPLAINS OF: Dizziness, DENIES: Diaphoretic episodes, Fatigue , Fever, Weight gain, Weight loss, Chills, Change in appetite, Night Sweats Endocrine: DENIES: Heat/cold intolerance, Polydipsia, Polyuria, Polyphagia Eyes: DENIES: Blurred vision, Diplopia, Eye inflammation, Eye pain, Vision loss , Photosensitivity, Double Vision Ears, nose, mouth, throat: DENIES: Tinnitus, Hearing loss, Vertigo, Nasal discharge, Oral lesions, Throat pain, Hoarseness, Ear Pain, Running Nose, Epistaxis, Sinus Pain, Toothache, Odynophagia Respiratory: DENIES: Apneas, Cough, Snoring, Wheezing, Hemoptysis, Sputum production, Shortness of breath Cardiovascular: COMPLAINS OF: Syncope, DENIES: Chest pain, Palpitations, Dyspnea on Exertion, PND, Lower Extremity Edema, Orthopnea, Claudication Gastrointestinal: DENIES: Abdominal pain, Black stools, Bloody stools, Constipation, Diarrhea, Nausea, Vomiting, Difficulty Swallowing, Anorexia Musculoskeletal: DENIES: Joint pain, Muscle aches, Stiffness, Joint Swelling, Back pain, Neck pain Integumentary: DENIES: Abnormal pigmentation, Nail changes, Pruritus, Rash Hematologic/lymphatic: DENIES: Bruising, Lymphadenopathy Immunologic/allergic: DENIES: Eczema, Urticaria Neurologic: DENIES: Abnormal gait, Headache, Localized weakness, Paresthesias, Seizures, Speech Problems, Tremor, Poor Balance Psychiatric: DENIES: Anxiety, Confusion, Mood changes, Depression, Hallucinations, Agitation, Suicidal Ideation, Homicidal Ideation, Delusions Past Family Social History Past Medical History Denies Past Surgical History Total right knee arthroplasty Reported Medications Denies Allergies: Coded Allergies: No Known Allergies (Verified , 03/09/17) Active Ordered Medications Reviewed in the medical record Family History Mother from lung cancer, father had a stroke and 84, brother has prostate cancer Social History No tobacco or alcohol dependency, lives with his Physical Exam Vital Signs Vital Signs Date Time Temp Pulse Resp B/P (MAP) Pulse Ox O2 Delivery O2 Flow Rate FiO2 03/10/17 08:00 65 03/10/17 08:00 96.2 76 18 112/75 (87) 98 03/10/17 04:00 96.2 76 16 117/71 (86) 96 03/10/17 00:00 96.0 82 20 153/78 (103) 96 03/09/17 22:20 87 03/09/17 22:13 03/09/17 22:00 98.0 82 20 153/78 (103) 96 03/09/17 19:20 78 16 133/76 (95) 99 Room Air 03/09/17 18:40 78 16 131/77 (95) 98 Room Air 03/09/17 18:20 16 03/09/17 17:10 95 Room Air 03/09/17 16:35 98.0 78 16 149/85 (106) 95 Physical Exam GENERAL: This is a well-nourished, well-developed patient, in no apparent distress. SKIN: No rashes, ecchymoses or lesions. Cool and dry. HEAD: Atraumatic. Normocephalic. No temporal or scalp tenderness. EYES: Pupils equal round and reactive. Extraocular motions intact. No scleral icterus. No injection or drainage. ENT: Nose without bleeding, purulent drainage or septal hematoma. Throat without erythema, tonsillar hypertrophy or exudate. Uvula midline. Airway patent. NECK: Trachea midline. No JVD or lymphadenopathy. Supple, nontender, no meningeal signs. CARDIOVASCULAR: Regular rate and rhythm without murmurs, gallops, or rubs. RESPIRATORY: Clear to auscultation. Breath sounds equal bilaterally. No wheezes , rales, or rhonchi. GASTROINTESTINAL: Abdomen soft, non-tender, nondistended. No hepato-splenomegaly , or palpable masses. No guarding. MUSCULOSKELETAL: Extremities without clubbing, cyanosis, or edema. No joint tenderness, effusion, or edema noted. No calf tenderness. Negative Homans sign bilaterally. NEUROLOGICAL: Awake and alert. Cranial nerves II through XII intact. Motor and sensory grossly within normal limits. Five out of 5 muscle strength in all muscle groups. Normal speech. Laboratory Laboratory Tests Test 03/09/17 17:00 03/09/17 22:50 03/10/17 06:15 White Blood Count 11.6 7.2 Red Blood Count 5.66 5.44 Hemoglobin 15.7 15.2 Hematocrit 46.9 45.8 Mean Corpuscular Volume 82.9 84.1 Mean Corpuscular Hemoglobin 27.7 27.9 Mean Corpuscular Hemoglobin Concent 33.4 33.1 Red Cell Distribution Width 14.0 13.9 Platelet Count 226 198 Mean Platelet Volume 8.4 8.3 Neutrophils (%) (Auto) 74.1 69.0 Lymphocytes (%) (Auto) 16.0 18.6 Monocytes (%) (Auto) 8.3 10.9 Eosinophils (%) (Auto) 0.7 0.7 Basophils (%) (Auto) 0.9 0.8 Neutrophils # (Auto) 8.5 4.9 Lymphocytes # (Auto) 1.9 1.3 Monocytes # (Auto) 1.0 0.8 Eosinophils # (Auto) 0.1 0.1 Basophils # (Auto) 0.1 0.1 CBC Comment DIFF FINAL DIFF FINAL Differential Comment Prothrombin Time 10.6 Prothromb Time International Ratio 1.0 Activated Partial Thromboplast Time 25.8 Blood Urea Nitrogen 16 15 Creatinine 1.50 1.20 Random Glucose 116 97 Total Protein 7.2 Albumin 3.7 Calcium Level 8.7 8.6 Alkaline Phosphatase 88 Aspartate Amino Transf (AST/SGOT) 12 Alanine Aminotransferase (ALT/SGPT) 28 Total Bilirubin 1.0 Sodium Level 136 140 Potassium Level 4.0 4.2 Chloride Level 103 107 Carbon Dioxide Level 27.7 26.9 Anion Gap 5 6 Estimat Glomerular Filtration Rate 47 60 Total Creatine Kinase 86 79 64 Troponin I LESS THAN 0.02 LESS THAN 0.02 LESS THAN 0.02 Result Diagram: 03/10/17 0615 03/10/17 0615 Imaging Last Impressions Carotid Artery Ultrasound 03/10/17 0000 Signed Impressions: Service Date/Time: Friday, March 10, 2017 07:53 - CONCLUSION: 1. Minimal carotid plaque without significant flow-limiting stenosis. 2. Antegrade vertebral artery flow bilaterally. Rohith Arnett MD Head CT [id number]/[id number] Signed Impressions: Service Date/Time: Thursday, March 09, 2017 18:21 - CONCLUSION: No acute intracranial abnormality is identified. Braeden Lopez MD Chest X-Ray [id number]/09/[id number] Signed Impressions: Service Date/Time: Thursday, March 09, 2017 17:04 - CONCLUSION: Normal examination. Kurtis Mccullough MD Cervical Spine CT [id number] Signed Impressions: Service Date/Time: Thursday, March 09, 2017 18:21 - CONCLUSION: No acute cervical spine abnormality is identified. MD Rubens Desai VTE Risk Assessment Rubens VTE Risk Assessment: No/Low Risk (score <= 1) Caprini Risk Assessment Model Point Value = 1 Point Value = 2 Point Value = 3 Point Value = 5 Age 41-60 Minor surgery BMI > 25 kg/m2 Swollen legs Varicose veins or History of unexplained or recurrent spontaneous Oral contraceptives or hormone replacement Sepsis (< 1 month) Serious lung disease, including pneumonia (< 1 month) Abnormal pulmonary function Acute myocardial infarction Congestive heart failure (< 1 month) History of inflammatory bowel disease Medical patient at bed rest Age 61-74 Arthroscopic surgery Major open surgery (> 45 min) Laparoscopic surgery (> 45 min) Malignancy Confined to bed (> 72 hours) Immobilizing plaster cast Central venous access Age >= 75 History of VTE Family history of VTE Factor V Leiden Prothrombin [id number] Lupus anticoagulant Anticardiolipin antibodies Elevated serum homocysteine Heparin-induced thrombocytopenia Other congenital or acquired thrombophilia Stroke (< 1 month) Elective arthroplasty Hip, pelvis, or leg fracture Acute spinal cord injury (< 1 month) Prophylaxis Regimen Total Risk Factor Score Risk Level Prophylaxis Regimen 0-1 Low Early ambulation 2 Moderate Order ONE of the following: *Sequential Compression Device (SCD) *Heparin 5000 units SQ BID 3-4 Higher Order ONE of the following medications: *Heparin 5000 units SQ TID *Enoxaparin/Lovenox 40 mg SQ daily (WT < 150 kg, CrCl > 30 mL/min) *Enoxaparin/Lovenox 30 mg SQ daily (WT < 150 kg, CrCl > 10-29 mL/min) *Enoxaparin/Lovenox 30 mg SQ BID (WT < 150 kg, CrCl > 30 mL/min) AND/OR *Sequential Compression Device (SCD) 5 or more Highest Order ONE of the following medications: *Heparin 5000 units SQ TID (Preferred with Epidurals) *Enoxaparin/Lovenox 40 mg SQ daily (WT < 150 kg, CrCl > 30 mL/min) *Enoxaparin/Lovenox 30 mg SQ daily (WT < 150 kg, CrCl > 10-29 mL/min) *Enoxaparin/Lovenox 30 mg SQ BID (WT < 150 kg, CrCl > 30 mL/min) AND *Sequential Compression Device (SCD) Assessment and Plan Problem List: (1) Syncope ICD Code: R55 - Syncope and collapse Status: Acute Plan: Likely volume contracted and hypotensive related to that Echo unremarkable, imaging unremarkable, likely due to dehydration in a patient with admitted with increased outdoors work and with poor oral intake of fluids and food prior to his exertion. Patient will need to follow-up with his primary care physician Assessment and Plan Discharge home Activity unrestricted Follow-up PCP Diet regular Code Status Full Code Discussed Condition With Patient, the patient, spouse Problem Qualifiers (1) Syncope: Qualified Codes: R55 - Syncope and collapse Diana Islas MD Mar 10, 2017 14:35
--- NOTE | 2017-03-10 19:36 | EKG ---
Date Performed: 03/10/2017 Time Performed: 05:06:55 PTAGE: 66 years EKG: Sinus rhythm WITH SINUS ARRHYTHMIA NORMAL ECG PREVIOUS TRACING : 03/09/2017 22.36 Compared to prior tracing no significant change DOCTOR: Lorin Kim Interpretating Date/Time 03/10/2017 19:34:22
--- NOTE | 2017-03-10 19:43 | EKG ---
Date Performed: 03/09/2017 Time Performed: 22:36:13 PTAGE: 66 years EKG: Sinus rhythm NORMAL ECG PREVIOUS TRACING : 03/09/2017 16.45 Compared to prior tracing no significant change DOCTOR: Lorin Kim Interpretating Date/Time 03/10/2017 19:41:51
--- NOTE | 2017-03-10 19:54 | EKG ---
Date Performed: 03/09/2017 Time Performed: 16:45:20 PTAGE: 66 years EKG: Sinus rhythm NORMAL ECG PREVIOUS TRACING : 07/03/2016 09.16 Compared to prior tracing no significant change DOCTOR: Lorin Kim Interpretating Date/Time 03/10/2017 19:52:30
== END 2017-03-10 16:40 | disposition home or self-care (01) ==
LOC: PHED 16:29 → PHEDA 19:46 → PH3A 21:58
PROVIDERS: ADMIT Internal Medicine; ATTEND Internal Medicine
DX: R55 Syncope and collapse (principal); S01.81XA Laceration without foreign body of other part of head, initial encounter; N17.9 Acute kidney failure, unspecified; E86.0 Dehydration
CPT/HCPCS: 12011; 70450; 71010; 72125; 80048; 80053; 82550; 84484; 85025; 85610; 85730; 93005; 93306; 93880; 96360; 97162; 99285; G0378; G8987; G8988; J7030